=== PATIENT | male | born 1960 | race Caucasian/White ===

== ENCOUNTER 2017-12-19 14:40 | Inpatient (IN) | payer BC, OTHER ==
[~2017-12-19] VITALS: Ht 180.3 cm; Wt 78.0 kg
--- NOTE | 2017-12-19 17:45 | NUR ---
Pre-assessment Pre-assessment performed in the intake department of [facility]. Pt is A&Ox4 and ambulatory with a steady gait. He does not appear intoxicated and answers questions appropriately. He is noted to have anxiety, hand tremors, and facial flushing. His affect is flat and he has racing thoughts. He states he feels apprehensive about being admitted to detox. Vital signs: B/P 158/91, HR 109, RR 18, O2 sat 97%, T 98.0, pain 0/10. He denies chest pain or SOB. Pt reports he has been drinking 18 cans of 12oz [place] beers per day for the past year. His drinking increased during his divorce 6 years ago. Last drink was one beer on the plane today at 1430. He had two beers in the airport prior to boarding the plane. He drank 12 beers yesterday. His longest period of sobriety 3 years ago and lasted for 1 week. Pt denies using any other substances. Pt denies any treatment history. He denies SI/HI. He denies 5150's, overdoses, seizures, or withdrawal induced confusion. 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 PMH includes hyperlipidemia, acid reflux, and seasonal allergies. CIWA on admission is 11. Pt is stable and admission to continue on the [facility].
[2017-12-19 18:06] LABS: *AMPHETAMINE, URINE NEGATIVE (NEGATIVE); *BARBITURATE, URINE NEGATIVE (NEGATIVE); *CANNABINOID, URINE NEGATIVE (NEGATIVE); *COCCAINE, URINE NEGATIVE (NEGATIVE); *OPIATE, URINE NEGATIVE (NEGATIVE); *PHENCYCLIDINE SCREEN,URINE NEGATIVE (NEGATIVE)
[2017-12-19] MEDS ORDERED: D-ME-89 PO (19:25)
[2017-12-19] MEDS ORDERED: NAPR-1009 PO (19:25)
[2017-12-19] MEDS ORDERED: ASPI1TAB2 PO (19:25)
[2017-12-19] MEDS ORDERED: LORA10TA7 PO (19:25)
[2017-12-19] MEDS ORDERED: IBUP-1955 PO (19:25)
[2017-12-19 19:45] VITALS: BP 158/91
[2017-12-19 20:00] VITALS: BP 152/93
--- NOTE | 2017-12-19 20:15 | NUR ---
ADMISSION NOTE Pt is a 57 y/o male who is being admitted for medically supervised withdrawal from ETOH. The pt is not currently intoxicated and is not experiencing any s/s of withdrawal. Pt has depressed and withdrawn mood and is anxious. Pt states he is a creature of habit and does not like new places. Pt is A/O to person, place, time, and purpose. Pt states he has never noticed or experienced any withdrawal symptoms. Pt states he has never been to treatment or detox in the past. Pt states the longest her has been sober at one time is 30 days. Pt denies a h/o withdrawal induced seizures. Pt states current substance use as follows: 1. ETOH (Co[place]): 12-18 beers, sometimes 2-3 beers, daily for the past 10 yrs. Pts last drink was on 12/19/17 @ 1430. Pt first began using 40 yrs ago. Pt states he is seeking treatment today because I am spiraling in the wrong direction. It takes more beers for me to get drunk. Pt also states I want to take care of this before someone gets hurt or dies. Pt states he is ready to quit for good. I want to do this for my daughter. Pt doesnt have a support system back home except for his daughter. Pt lives alone, as his daughter is away at college. Pts V/S as follows: T:97.9, P:92, RR:18, SPO2: 99%, and BP:152/93. Pts respirations are unlabored and even. Pts skin is intact. Pt has no known allergies. Pt is 511 and 172lbs. Pts PCP is Dr. Arun Chong. Pt has no medical Hx or psychiatric Hx. Pt follows a regular diet at home. Pt smokes a pack and a half of cigarettes a day. Pt has never been admitted to a hospital. Pt has been seen by Dr. Ortiz. All labs and blood work have been collected. [place] precautions are in place. Call light is within reach. Pt will continue to be monitored and needs met. Addendum: 12/20/17 at 0006 by CRISTINE BARAHONA RN Pt later stated h/o hyperlipidemia and acid reflux.
[2017-12-19] MEDS ORDERED: MAG HYDROX/AL HYDROX/SIMETH 30 ML LIQUID UDC PO PRN (20:30)
[2017-12-19] MEDS ORDERED: LOPERAMIDE HCL 2 MG CAPSULE PO PRN ×2 (20:30)
[2017-12-19] MEDS ORDERED: MIRALAX 17 GM POWD.PACK PO PRN (20:30)
[2017-12-19] MEDS ORDERED: ACETAMINOPHEN 325 MG TABLET PO PRN (20:30)
[2017-12-19] MEDS ORDERED: ONDANSETRON ODT 4 MG TAB.RAPDIS SL PRN (20:30)
[2017-12-19] MEDS ORDERED: IBUPROFEN 400 MG TABLET PO PRN (20:30)
[2017-12-19] MEDS ORDERED: LORAZEPAM 2 MG/1 ML VIAL IM PRN (20:30)
[2017-12-19] MEDS ORDERED: LORAZEPAM 1 MG TABLET PO PRN ×2 (20:30)
[2017-12-19] MEDS ORDERED: ASPIRIN/ACETAMINOPHEN/CAFFEINE TABLET PO PRN (21:15)
[2017-12-19] MEDS: diphenhydrAMINE 50 MG CAPSULE PO PRN (21:29)
--- NOTE | 2017-12-19 21:29 | NUR ---
PRN ADMINISTRATION PRN Benadryl 50mg and Clonidine 0.1mg for sleep and elevated BP respectively 152/93. Will reassess pt in 1 hr.
[2017-12-19] MEDS: CLONIDINE HCL 0.1 MG TABLET PO PRN (21:30)
[2017-12-19] MEDS: THIAMINE HCL 100 MG TABLET PO SCH (21:31)
--- NOTE | 2017-12-19 22:29 | NUR ---
PRN REASSESSMENT Pt reassessed after administration of Clonidine and Benadryl. Pt was in bed w/ his eyes closed. Pt's V/S: T:98.1, P:87, RR:16, SPO2:99%, and BP:135/75. Medication noted to be effective.
[2017-12-20] VITALS: BP 132/78
[2017-12-20] MEDS ORDERED: IBUP-1953 PO (00:14)
[2017-12-20] MEDS ORDERED: CALC500T13 PO (00:15)
[2017-12-20] MEDS ORDERED: LORA5SOL7 PO (00:16)
[2017-12-20] MEDS ORDERED: MULT1TAB73 PO (00:16)
[2017-12-20] MEDS ORDERED: ATOR40TA PO (00:18)
[2017-12-20] MEDS ORDERED: OMEP20TA20 PO (00:18)
--- NOTE | 2017-12-20 04:00 | NUR ---
V/S REFUSED Pt is in bed w/ his eyes closed. Pt's breathing is unlabored and even.
--- NOTE | 2017-12-20 07:09 | NUR ---
END OF SHIFT NOTE Endorsed pt to oncoming nurse, pt is in his room. Pt is a 57 y/o male A/O to person, place, time, and purpose. Pt was admitted for medically supervised withdrawal from ETOH. Pt was not intoxicated and was not currently experiencing any s/s of withdrawal. Pt stated he was anxious about being in a new environment. PRN Clonidine 0.1mg was given for elevated BP of 152/93, noted effective @ BP of 135/82. PRN Bendaryl 50mg was given for sleep, noted effective. Pts fluid intake was 1,000ml and he voided 2 times. Pt slept for 5.75 hrs. Last CIWA 2 @ 1999. Call light is within reach.
--- NOTE | 2017-12-20 07:30 | NUR ---
START OF SHIFT Pt is a 57 yr old male, AA&Ox4. Pt was admitted on 12/19/17 for ETOH withdrawal and is on PRN's for s/s of w/d. Received report from geophysical laboratory director nurse. Pt received Clonidine PRN and Benadryl PRN during the night. Medication was effective. Pt slept for 6 hrs. Last CIWA score was 2 during the night. Pt is currently c/o anxiety this morning. Skin is intact, warm and moist to touch. Safety precautions observed. Call light is within reach. Will continue to monitor.
[2017-12-20 08:00] VITALS: BP 112/67
[2017-12-20] MEDS ORDERED: LORATADINE 10 MG TABLET PO SCH (09:00)
[2017-12-20] MEDS: MULTIVITAMINS,THERAPEUTIC TABLET PO SCH (09:27)
[2017-12-20] MEDS: THIAMINE HCL 100 MG TABLET PO SCH (09:27)
[2017-12-20] MEDS: FOLIC ACID 1 MG TABLET PO SCH (09:27)
--- NOTE | 2017-12-20 09:45 | NUR ---
MEDICATION REFUSED Pt refused to take Claritin 10mg PO daily as scheduled at 0900. Pt states, "I don't need that right now", pt states he takes it as needed when he has seasonal allergies. Will continue to monitor.
[2017-12-20 12:00] VITALS: BP 124/75
[2017-12-20 16:00] VITALS: BP 116/81
--- NOTE | 2017-12-20 18:57 | NUR ---
END OF SHIFT Pt is a 57 yr old male, AA&Ox4. Pt was admitted on 12/19/17 for ETOH withdrawal and was on PRN's for s/s of w/d. Pt has been cooperative with plan of care. Pt was noted with anxiety m/b difficulty staying still. Skin is intact, warm and moist to touch. No PRNs were given during the day. Pt was encouraged increase fluid intact for hydration. Safety precautions observed. Call light is within reach. Endorsed to shift boss to continue with care.
--- NOTE | 2017-12-20 19:30 | NUR ---
START OF SHIFT Pt is a 57 yr old male,A/ A/A&O x 4. Pt was admitted on 12/19/17 for ETOH withdrawal.Pt does not have any taper medications ordered.He is on PRN medications only for s/s of withdrawals. No PRNs were given during the day. Pt encouraged to increase oral fluid intake as tolerated. Safety precautions observed. Call is light is within reach. Will continue to monitor.
[2017-12-20 20:00] VITALS: BP 125/74
[2017-12-20] MEDS: diphenhydrAMINE 50 MG CAPSULE PO PRN (21:29)
--- NOTE | 2017-12-20 21:30 | NUR ---
PRN BENADRYL GIVEN ORDERED FOR C/O INSOMNIA.WILL MONITOR.
--- NOTE | 2017-12-20 22:30 | NUR ---
PRN BENADRYL IS EFFECTIVE.PT IS CALM AND RESTING IN BED WITH EYES CLOSED.NO S/S OF DISTRESS NOTED.
[2017-12-21] VITALS: BP 121/78
[2017-12-21 04:00] VITALS: BP 118/78
--- NOTE | 2017-12-21 06:38 | NUR ---
END OF SHIFT Pt is a 57 yr old male,A/ A/A&O x 4. Pt was admitted on 12/19/17 for ETOH withdrawal.Pt does not have any taper medications ordered.He is on PRN medications only for s/s of withdrawals. PRN Benadryl was given for insomnia with good effect.Pt slept 7 hrs,fluid intake was 500 mls,voided x 1. Pt encouraged to increase oral fluid intake as tolerated. Safety precautions observed. Call light is within reach. Will endorse care to day shift nurse.
--- NOTE | 2017-12-21 07:41 | NUR ---
START OF SHIFT Pt is a 57 yr old male, AA&Ox4. Pt was admitted on 12/19/17 for ETOH withdrawal and was on PRN's for s/s of w/d. Received report from night court magistrate nurse. Pt received Benadryl PRN for sleep during the night. Medication was effective. Pt slept for 7 hrs. Pt is currently c/o anxiety this morning. Pt is noted tensed. Skin is intact, warm and moist to touch. Pt is to be discharged today to [facility]. Safety precautions observed. Call light is within reach. Will continue to f/u.
[2017-12-21 08:00] VITALS: BP 144/91
[2017-12-21] MEDS: MULTIVITAMINS,THERAPEUTIC TABLET PO SCH (08:19)
[2017-12-21] MEDS: THIAMINE HCL 100 MG TABLET PO SCH (08:19)
[2017-12-21] MEDS: FOLIC ACID 1 MG TABLET PO SCH (08:19)
[2017-12-21] MEDS: CLONIDINE HCL 0.1 MG TABLET PO PRN (08:19)
--- NOTE | 2017-12-21 08:20 | NUR ---
PRN GIVEN Pt was noted with increase BP of 144/92. Clonidine 0.1mg PO PRN was given for increase BP. Encouraged increase fluid intake. Will continue to monitor.
[2017-12-21 09:20] VITALS: BP 133/88
--- NOTE | 2017-12-21 09:20 | NUR ---
PRN GIVEN RE-ASSESSMENT Clonidine 0.1mg PO PRN was effective. BP decreased to 132/88. Pt was encouraged to continue with increase fluid intake for hydration. Pt denies any headache. Will continue to monitor.
[2017-12-21 12:00] VITALS: BP 117/79
[2017-12-21 16:00] VITALS: BP 116/71
--- NOTE | 2017-12-21 18:07 | NUR ---
DISCHARGE NOTE Pt is a 57 yr old male, AA&Ox4. Pt was admitted on 12/19/17 for ETOH withdrawal and was on PRN's for s/s of w/d. Pt has been cooperative with medication regimen and plan of care. Pt was educated on discharged summary. Pt was able to verbalized understanding. No SI/HI noted. Pt was escorted off the unit at 1757 in stable condition. Pt left with all belongs, valuables and home medication. Pt left to [facility].
== END 2017-12-21 17:57 | disposition other institution (70) | DRG 897 ==
LOC: SRC 16:27
PROVIDERS: ADMIT Internal Medicine; ATTEND Internal Medicine
PROC: HZ2ZZZZ Detoxification Services for Substance Abuse Treatment (ICD-10-PCS; principal; 2017-12-19)
DX: F10.10 Alcohol abuse, uncomplicated (principal); Y90.9 Presence of alcohol in blood, level not specified; F17.210 Nicotine dependence, cigarettes, uncomplicated; K29.70 Gastritis, unspecified, without bleeding; E78.5 Hyperlipidemia, unspecified; Z81.1 Family history of alcohol abuse and dependence; Z82.0 Family history of epilepsy and other diseases of the nervous system
CPT/HCPCS: 80307; Q0163